=== PATIENT | male | born 1975 | race Caucasian/White ===

== ENCOUNTER → 2018-08-23 | Outpatient (CLI) | payer OTHER ==
--- NOTE | ~2018-08-23 | 24HR ---
[address] [place] [address] 24 HR ELECTROCARDIOGRAM REPORT Name: KVNG LATHAM Room #: REG [facility]#: [id number] Admission: 08/23/18 Attend Phys: Ethan Giraldo MD Discharge: Date of : 79 Date of Service: 08/23/181134 Report #: [id number] THIS REPORT FOR: //name// [facility] Test Date: 2018-08-23 Test Time: 11:35:00 Pat Name: KVNG LATHAM Department: Room: Gender: Medical [employer]: : 1975 Requested By: Ethan Giraldo Order Number: [id number] Nick DONATO: Interpretive Statements [email or web address] [email or web address] 34 34 Epiphany EpiphMD emmy /EPI
== END ==
LOC: CV 10:32
DX: R00.1 Bradycardia, unspecified (principal)